=== PATIENT | male | born 1980 | race Two or more races ===

== ENCOUNTER 2018-01-23 05:18 | Emergency (ER) | payer SELFPAY ==
[2018-01-23] MEDS ORDERED: KETOROLAC TROMETHAMINE INJ/PF 30 MG/1 ML SDV IV ONE (08:44)
[2018-01-23] MEDS ORDERED: NORMAL SALINE 1000 ML 1,000 ML IV ONE (08:44)
--- NOTE | 2018-01-23 08:49 | ER Document Report ---
ED GI/ - General Mode of Arrival: Ambulatory Information source: Patient TRAVEL OUTSIDE OF THE U.S. IN LAST 30 DAYS: No <DMITRI MONTOYA - Last Filed: 01/23/18 10:36> <MATTHEW DEAN - Last Filed: 01/23/18 11:58> - General Chief Complaint: Abdominal Pain Stated Complaint: ABDOMINAL PAIN Time Seen by Provider: 01/23/18 08:34 Notes: 37-year-old male who moved here from [place] in November of 2017 presents to the emergency department today with complaints of right lower quadrant abdominal pain that radiates to his right flank. Patient states the pain woke him up out of sleep this morning at 0400. Patient states his only past medical history is high blood pressure which he takes 50 mg of losartan for. Family member at bedside states that he "shares" the medicine for his blood pressure which is hers. (DMITRI MONTOYA) Patient was recently in the [facility], has not gotten his blood pressure medication refilled since he returned to the [facility]. He was in [place] and has come up here to live just over a month ago. He normally takes losartan 50 mg daily. (MATTHEW DEAN) - Related Data Allergies/Adverse Reactions: No Known Allergies Allergy (Unverified 01/23/18 08:39) Past Medical History - General Information source: Patient - Social History Smoking Status: Never Smoker Cigarette use (# per day): No Chew tobacco use (# tins/day): No Frequency of alcohol use: None Drug Abuse: None Lives with: Family Family History: Reviewed & Not Pertinent Patient has suicidal ideation: No Patient has homicidal ideation: No Renal/ Medical History: Denies: Hx Peritoneal Dialysis <DMITRI MONTOYA - Last Filed: 01/23/18 10:36> Review of Systems - Review of Systems Constitutional: No symptoms reported EENT: No symptoms reported Cardiovascular: No symptoms reported Respiratory: No symptoms reported Gastrointestinal: See HPI, Abdominal pain Genitourinary: See HPI, Flank pain Male Genitourinary: No symptoms reported Musculoskeletal: No symptoms reported Skin: No symptoms reported Hematologic/Lymphatic: No symptoms reported Neurological/Psychological: No symptoms reported -: Yes All other systems reviewed and negative <DMITRI MONTOYA - Last Filed: 01/23/18 10:36> Physical Exam <DMITRI MONTOYA - Last Filed: 01/23/18 10:36> <MATTHEW DEAN - Last Filed: 01/23/18 11:58> - Vital signs Vitals: Temp Pulse Resp BP Pulse Ox 97.9 F 79 20 174/113 H 100 01/23/18 05:25 01/23/18 05:25 01/23/18 05:25 01/23/18 05:25 01/23/18 05:25 - Notes Notes: Physical Exam: General: Alert, appears well. HEENT: Normocephalic. Atraumatic. PERRL. Extraocular movements intact. Oropharynx clear. Neck: Supple. Non-tender. Respiratory: No respiratory distress. Clear and equal breath sounds bilaterally. Cardiovascular: Regular rate and rhythm. Abdominal: Right lower quadrant tenderness to palpation. No distension. Normal Bowel Sounds. Back: Non-tender, no CVA tenderness to percussion. No deformity or step off. Extremities: Moves all four extremities. Upper extremities: Normal inspection. Normal ROM. Lower extremities: Normal inspection. No edema. Normal ROM. Neurological: Normal cognition. AAOx4. Normal speech. Psychological: Normal affect. Normal Mood. Skin: Warm. Dry. Normal color. (DMITRI MONTOYA) Course - Laboratory Result Diagrams: 01/23/18 09:30 01/23/18 09:30 <DMITRI MONTOYA - Last Filed: 01/23/18 10:36> - Laboratory Result Diagrams: 01/23/18 09:30 01/23/18 09:30 - Diagnostic Test Radiology reviewed: Image reviewed, Reports reviewed - 3 mm right distal ureteral stone with moderate hydroureter and hydronephrosis <MATTHEW DEAN - Last Filed: 01/23/18 11:58> - Vital Signs Vital signs: Temp Pulse Resp BP Pulse Ox 97.9 F 79 27 H 162/113 H 97 01/23/18 05:25 01/23/18 05:25 01/23/18 11:01 01/23/18 11:01 01/23/18 11:01 - Laboratory Laboratory results interpreted by me: 01/23/18 01/23/18 01/23/18 09:30 09:30 09:45 WBC 13.6 H Seg Neutrophils % 86.6 H Lymphocytes % 8.4 L Absolute Neutrophils 11.8 H Total Protein 8.7 H Albumin 5.1 H Urine Blood MODERATE H Discharge <DMITRI MONTOYA - Last Filed: 01/23/18 10:36> <MATTHEW DEAN - Last Filed: 01/23/18 11:58> - Discharge Clinical Impression: Right distal ureteral calculus, Has run out of medications High blood pressure Qualifiers: Hypertension type: essential hypertension Qualified Code(s): I10 - Essential ( primary) hypertension Condition: Stable Disposition: HOME, SELF-CARE Additional Instructions: Kidney Stone You are passing or have passed a kidney stone. These stones are usually due to increased calcium or uric acid concentrations in your urine. Stones within the kidney itself are not painful. The pain occurs as the stone leaves the kidney to pass down the long tube, called the ureter, leading to the bladder. If the stone is small, it will usually pass by itself. Most patients can pass the stone at home. You will usually receive medications for pain, nausea or vomiting, and sometimes a medication to assist in passing the kidney stone. However, if the pain is very severe or if vomiting prevents you from taking oral pain medications, you may need to return for further treatment. Drink three or four quarts of fluids per day. You will be given pain medication (if needed) and urine strainers. Strain all your urine to see if the stone passes. If your doctor has asked you to bring the stone in for analysis, return with the stone once it has passed. Return if pain or vomiting become severe, if you develop a high fever, if you are unable to pass your urine, or if other unusual symptoms occur. Drink plenty of fluids. Strain urine. Take the blood pressure medication as prescribed. Take the pain medication if needed. Take ibuprofen 600 mg every 8 hours to reduce the discomfort from the kidney stone. Follow-up with a local medical doctor to manage her blood pressure. Follow-up with a local medical doctor or local urologist if you do not pass the kidney stone in the next 7-10 days. RETURN TO THE EMERGENCY ROOM IF ANY NEW OR WORSENING SYMPTOMS. Prescriptions: Losartan Potassium [Cozaar 50 mg Tablet] 50 mg PO DAILY #30 tablet Oxycodone HCl/Acetaminophen [Percocet 5-325 mg Tablet] 1 - 2 tab PO ASDIR PRN # 15 tablet PRN Reason: Scribe Attestation: 01/23/18 08:49 I personally performed the services described in the documentation, reviewed and edited the documentation which was dictated to the scribe in my presence, and it accurately records my words and actions. (DMITRI MONTOYA) Scribe Documentation - Scribe Written by Tamar:: Tamar Greenwood, 01/23/2018 1043 acting as scribe for :: Mckayla <DMITRI MONTOYA - Last Filed: 01/23/18 10:36>
[2018-01-23 09:57] LABS: ABSOLUTE LYMPHOCYTES (AUTO) 1.1 10^3/uL (0.5-4.7); ABSOLUTE MONOCYTES (AUTO) 0.6 10^3/uL (0.1-1.4); ABSOLUTE NEUT (AUTO) 11.8 10^3/uL (1.7-8.2); BASOPHILS % (AUTO) 0.2 % (0-2); EOSINOPHILS % (AUTO) 0.1 % (0-6); HEMATOCRIT 48.5 % (37.9-51.0); HEMOGLOBIN 16.8 g/dL (13.5-17.0); LYMPHOCYTES % (AUTO) 8.4 % (13-45); MEAN CORPUSCULAR HEMOGLOBIN 30.4 pg (27.0-33.4); MEAN CORPUSCULAR HGB CONC 34.6 g/dL (32.0-36.0); MEAN CORPUSCULAR VOLUME 88 fl (80-97); MONOCYTES % (AUTO) 4.7 % (3-13); PLATELET COUNT 196 10^3/uL (150-450); RED BLOOD COUNT 5.51 10^6/uL (4.35-5.55); RED CELL DISTRIBUTION WIDTH 13.3 % (11.5-14.0); SEGMENTED NEUTROPHILS % (AUTO) 86.6 % (42-78); TOTAL CELLS COUNTED % (AUTO) 100 %; WHITE BLOOD COUNT 13.6 10^3/uL (4.0-10.5)
[2018-01-23 10:11] LABS: ALANINE AMINOTRANSFERASE 66 U/L (21-72); ALBUMIN 5.1 g/dL (3.5-5.0); ALKALINE PHOSPHATASE 68 U/L (38-126); ANION GAP 17 (5-19); ASPARTATE AMINO TRANSFERASE 33 U/L (17-59); BILIRUBIN,DIRECT 0.2 mg/dL (0.0-0.4); BILIRUBIN,TOTAL 0.8 mg/dL (0.2-1.3); BLOOD UREA NITROGEN 17 mg/dL (7-20); CALCIUM 9.9 mg/dL (8.4-10.2); CARBON DIOXIDE 25 mmol/L (22-30); CHLORIDE 103 mmol/L (98-107); GLUCOSE 103 mg/dL (75-110); POTASSIUM 4.5 mmol/L (3.6-5.0); SODIUM 144.6 mmol/L (137-145); TOTAL PROTEIN 8.7 g/dL (6.3-8.2)
[2018-01-23 10:12] LABS: APPEARANCE,URINE CLEAR; BILIRUBIN,URINE NEGATIVE (NEGATIVE); COLOR,URINE STRAW; GLUCOSE, URINE NEGATIVE (NEGATIVE); KETONES,URINE NEGATIVE (NEGATIVE); LEUKOCYTE ESTERASE,URINE NEGATIVE (NEGATIVE); NITRITE,URINE NEGATIVE (NEGATIVE); PROTEIN,URINE NEGATIVE (NEGATIVE); URINE SPECIFIC GRAVITY 1.011; UROBILINOGEN,URINE NEGATIVE mg/dL (<2.0)
--- NOTE | 2018-01-23 11:09 | RADIOLOGY REPORT (SQ) ---
EXAM DESCRIPTION: CT LTD RENAL STONE PROTOCOL ON COMPLETED DATE/TIME: 01/23/2018 10:48 am REASON FOR STUDY: Right lower quadrant abdominal pain with hematuria COMPARISON: None. TECHNIQUE: CT scan of the abdomen and pelvis performed without intravenous or oral contrast. Images reviewed with lung, soft tissue, and bone windows. Reconstructed coronal and sagittal MPR images revi ewed. All images stored on PACS. All CT scanners at this facility use dose modulation, iterative reconstruction, and/or weight based d osing when appropriate to reduce radiation dose to as low as reasonably achievable (ALARA). [facility]: Dose Right [facility]: CareDose [facility]: Dose Right [facility]: Teradose 4D [facility]: Smart Swift Endeavor RADIATION DOSE: CT Rad equipment meets quality standard of care and radiation dose reduction techniq ues were employed. CTDIvol: 5.0 mGy. DLP: 287 mGy-cm.mGy. LIMITATIONS: None. FINDINGS: A 3 mm calculus is present at the right ureterovesical junction, along the right ureteral orifice into the bladder. This causes mild to moderate right hydronephrosis and hydroureter, stone i s best shown on coronal image 39 and axial image 84. Elsewhere in the right kidney and ureter, no other calculi are identified. No right renal cysts or m asses. LOWER CHEST: No significant findings. No nodules or infiltrates. NON-CONTRASTED LIVER, SPLEEN, ADRENALS: Evaluation limited by lack of IV contrast. No identified sign ificant masses. PANCREAS: No masses. No peripancreatic inflammatory changes. GALLBLADDER: No identified stones by CT criteria. No inflammatory changes to suggest cholecystitis. RIGHT KIDNEY AND URETER: As above LEFT KIDNEY AND URETER: No suspicious masses. Assessment limited by lack of IV contrast. No signifi cant calcifications. No hydronephrosis or hydroureter. AORTA AND RETROPERITONEUM: No aneurysm. No retroperitoneal masses or adenopathy. BOWEL AND PERITONEAL CAVITY: No obvious masses or inflammatory changes. No free fluid. APPENDIX: Normal. PELVIS, BLADDER, AND ABDOMINAL WALL:No abnormal masses. No free fluid. Bladder normal. BONES: No significant findings. OTHER: No other significant finding. IMPRESSION: 3 mm distal right ureteral stone causing moderate right hydronephrosis and hydroureter. COMMENT: Quality ID # [id number]: Final reports with documentation of one or more dose reduction techniques (e.g., Automated exposure control, adjustment of the mA and/or kV according to patient size, use of iterative reconstruction technique) TECHNICAL DOCUMENTATION: JOB ID: [id number] [employer]- All Rights Reserved Reading location - IP/workstation name: [email or web address]
[2018-01-23 12:14] VITALS: BP 145/101
== END 2018-01-23 12:19 | disposition home or self-care (01) ==
LOC: ER 05:18
DX: N20.1 Calculus of ureter (principal); R10.9 Unspecified abdominal pain; I10 Essential (primary) hypertension
CPT/HCPCS: 99284; 96360; 96361; 36415; 85025; 80053; 81001; 76380; J7030

== ENCOUNTER 2020-04-24 22:39 | Emergency (ER) | payer SELFPAY ==
--- NOTE | 2020-04-25 00:02 | ER Document Report ---
ED Medical Screen (RME) - General Stated Complaint: POSSIBLE UTI/PASSING BLOOD Time Seen by Provider: 04/24/20 23:50 TRAVEL OUTSIDE OF THE [place] IN LAST 30 DAYS: No - HPI Notes: Patient is a 39 y/o male with a hx of HTN and kidney stones who presents with hematuria that began yesterday. He reports mild right flank pain but denies dysuria, abdominal pain, groin pain, nausea, vomiting, diarrhea, and penile discharge. Patient denies blood thinner use. - Related Data Allergies/Adverse Reactions: No Known Allergies Allergy (Unverified 01/23/18 08:39) Past Medical History Renal/ Medical History: Denies: Hx Peritoneal Dialysis Physical Exam - Vital signs Vitals: Temp Pulse Resp BP Pulse Ox 98.1 F 78 16 189/130 H 100 04/24/20 22:55 04/24/20 22:55 04/24/20 22:55 04/24/20 22:55 04/24/20 22:55 - Abdominal Distension: No distension Bowel sounds: Normal Tenderness: Nontender, Other - No CVA tenderness Course - Re-evaluation Re-evalutation: I have greeted and performed a rapid initial assessment of this patient. A comprehensive ED assessment and evaluation of the patient, analysis of test results and completion of medical decision making process will be conducted by an additional ED providers. - Vital Signs Vital signs: Temp Pulse Resp BP Pulse Ox 98.1 F 78 16 189/130 H 100 04/24/20 22:55 04/24/20 22:55 04/24/20 22:55 04/24/20 22:55 04/24/20 22:55
[2020-04-25 00:19] LABS: APPEARANCE,URINE CLEAR; BILIRUBIN,URINE NEGATIVE (NEGATIVE); COLOR,URINE RED; GLUCOSE, URINE NEGATIVE (NEGATIVE); KETONES,URINE NEGATIVE (NEGATIVE); LEUKOCYTE ESTERASE,URINE NEGATIVE (NEGATIVE); NITRITE,URINE NEGATIVE (NEGATIVE); PROTEIN,URINE 100 mg/dL (NEGATIVE); URINE SPECIFIC GRAVITY 1.005; UROBILINOGEN,URINE NEGATIVE mg/dL (<2.0)
[2020-04-25 00:34] LABS: ABSOLUTE EOSINOPHILS # (AUTO) 0.1 10^3/uL (0.0-0.6); ABSOLUTE LYMPHOCYTES (AUTO) 1.6 10^3/uL (0.5-4.7); ABSOLUTE MONOCYTES (AUTO) 0.4 10^3/uL (0.1-1.4); ABSOLUTE NEUT (AUTO) 5.5 10^3/uL (1.7-8.2); BASOPHILS % (AUTO) 0.5 % (0-2); EOSINOPHILS % (AUTO) 0.7 % (0-6); HEMATOCRIT 46.2 % (37.9-51.0); HEMOGLOBIN 16.1 g/dL (13.5-17.0); LYMPHOCYTES % (AUTO) 21.1 % (13-45); MEAN CORPUSCULAR HEMOGLOBIN 30.5 pg (27.0-33.4); MEAN CORPUSCULAR HGB CONC 34.8 g/dL (32.0-36.0); MEAN CORPUSCULAR VOLUME 88 fl (80-97); MONOCYTES % (AUTO) 5.8 % (3-13); PLATELET COUNT 190 10^3/uL (150-450); RED BLOOD COUNT 5.27 10^6/uL (4.35-5.55); RED CELL DISTRIBUTION WIDTH 13.3 % (11.5-14.0); SEGMENTED NEUTROPHILS % (AUTO) 71.9 % (42-78); TOTAL CELLS COUNTED % (AUTO) 100 %; WHITE BLOOD COUNT 7.6 10^3/uL (4.0-10.5)
[2020-04-25 00:54] LABS: ALBUMIN 4.8 g/dL (3.5-5.0); ALKALINE PHOSPHATASE 85 U/L (38-126); ANION GAP 11 (5-19); ASPARTATE AMINO TRANSFERASE 28 U/L (17-59); BILIRUBIN,DIRECT 0.1 mg/dL (0.0-0.4); BILIRUBIN,TOTAL 0.6 mg/dL (0.2-1.3); BLOOD UREA NITROGEN 18 mg/dL (7-20); CALCIUM 9.8 mg/dL (8.4-10.2); CARBON DIOXIDE 27 mmol/L (22-30); CHLORIDE 102 mmol/L (98-107); GLUCOSE 99 mg/dL (75-110); POTASSIUM 4.5 mmol/L (3.6-5.0); TOTAL PROTEIN 8.2 g/dL (6.3-8.2)
--- NOTE | 2020-04-25 02:55 | RADIOLOGY REPORT (SQ) ---
EXAM: CT Abdomen and Pelvis Without Intravenous Contrast EXAM DATE/TIME: 04/25/2020 1:57 AM CLINICAL HISTORY: The patient is 39 years old and is Male; flank pain TECHNIQUE: Axial computed tomography images of the abdomen and pelvis without intravenous contrast. Sagittal and coronal reformatted images were created and reviewed. This CT exam was performed using one or more of the following dose reduction techniques: automated exposure control, adjustment of the mA and/or kV according to patient size, and/or use of iterative reconstruction technique. COMPARISON: CT abdomen pelvis from 01/23/2018 FINDINGS: LUNG BASES: Unremarkable. No mass. No consolidation. ABDOMEN: LIVER: Unremarkable. No obvious liver masses appreciated on this non-contrast exam. GALLBLADDER AND BILE DUCTS: Unremarkable. No calcified stones. No significant biliary ductal dilatation. PANCREAS: Unremarkable. No ductal dilation. SPLEEN: Unremarkable. No splenomegaly. ADRENALS: Unremarkable. No adrenal nodules or masses identified. KIDNEYS AND URETERS: Probable small left renal cyst. No hydronephrosis. No renal or ureteral stones. No significant perinephric stranding. STOMACH AND BOWEL: No evidence of bowel obstruction. No significant bowel wall thickening appreciated. PELVIS: APPENDIX: The appendix is unremarkable. BLADDER: The urinary bladder is nondistended. No stones. REPRODUCTIVE: Unremarkable as visualized. ABDOMEN and PELVIS: INTRAPERITONEAL SPACE: Unremarkable. No free air. No significant fluid collection. BONES/JOINTS: No acute fracture. No dislocation. SOFT TISSUES: No significant abnormalities in the superficial soft tissues. VASCULATURE: Unremarkable. No abdominal aortic aneurysm. LYMPH NODES: No significant lymph node enlargement. IMPRESSION: No acute findings in the abdomen or pelvis.
[2020-04-25] MEDS ORDERED: SULFAMETHOXAZOLE/TRIMETHOPRIM 800-160 MG TABLET PO ONE (03:20)
--- NOTE | 2020-04-25 03:24 | ER Document Report ---
ED General - General Chief Complaint: Urinary Problem Stated Complaint: POSSIBLE UTI/PASSING BLOOD Time Seen by Provider: 04/24/20 23:50 Primary Care Provider: [facility] [Provider Group] - Follow up in 3-5 days [facility] [Provider Group] - Follow up in 3-5 days TRAVEL OUTSIDE OF THE [place] IN LAST 30 DAYS: No - HPI Notes: 39-year-old male to the emergency department with complaints of hematuria that began 2 days ago. He admits to some slight discomfort in his right flank but denies significant pain. He states that he has had a history of kidney stones but his pain was a lot worse than it is at this time. Denies any dysuria. He denies any fevers or chills. He does also state that he noted that he has had elevated blood pressure. He has a history and used to be on medications but is not currently. He is requesting to be treated for high blood pressure. Denies any chest pain, shortness of breath, headache, dizziness, numbness and tingling, or any other complaints. - Related Data Allergies/Adverse Reactions: No Known Allergies Allergy (Unverified 01/23/18 08:39) Past Medical History - General Information source: Patient, Parent - Social History Smoking Status: Former Smoker Frequency of alcohol use: None Drug Abuse: None Family History: Reviewed & Not Pertinent Patient has homicidal ideation: No Renal/ Medical History: Denies: Hx Peritoneal Dialysis Review of Systems - Review of Systems Constitutional: denies: Chills, Fever EENT: No symptoms reported Cardiovascular: denies: Chest pain, Palpitations, Heart racing, Orthopnea, Dyspnea, Syncope, Dizziness, Lightheaded Respiratory: denies: Cough, Short of breath Gastrointestinal: denies: Abdominal pain, Diarrhea, Nausea, Vomiting Genitourinary: Flank pain, Hematuria Musculoskeletal: No symptoms reported Skin: No symptoms reported Hematologic/Lymphatic: No symptoms reported Neurological/Psychological: No symptoms reported. denies: Headaches, Numbness -: Yes All other systems reviewed and negative Physical Exam - Vital signs Vitals: Temp Pulse Resp BP Pulse Ox 98.1 F 78 16 189/130 H 100 04/24/20 22:55 04/24/20 22:55 04/24/20 22:55 04/24/20 22:55 11/08/20 22:55 Interpretation: Hypertensive - General General appearance: Appears well, Alert In distress: None - HEENT Head: Normocephalic, Atraumatic Eyes: Normal Pupils: PERRL Neck: Normal, Supple - Respiratory Respiratory status: No respiratory distress Chest status: Nontender Breath sounds: Normal. No: Rales, Rhonchi, Wheezing Chest palpation: Normal - Cardiovascular Rhythm: Regular Heart sounds: Normal auscultation Murmur: No Notes: No leg edema - Abdominal Inspection: Normal Distension: No distension Bowel sounds: Normal Tenderness: Nontender. No: Tender, McBurney's point, Orozco's sign, Guarding, Rebound Organomegaly: No organomegaly - Back Back: Normal, Nontender. 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 CT is negative for kidney stones. Noted urinalysis with RBCs and white blood cell count. Will send urine for culture and cover for possible urinary tract infection. Patient has had elevated blood pressure here in the emergency department and I will start him on Norvasc. I have given him information for follow-up with [facility] as well as urology. Encouraged him to return if worsening symptoms patient agrees with the plan. - Vital Signs Vital signs: Temp Pulse Resp BP Pulse Ox 98.1 F 70 14 174/115 H 100 04/24/20 22:55 04/25/20 02:20 04/25/20 02:20 04/25/20 03:47 04/25/20 02:20 - Laboratory Result Diagrams: 04/25/20 00:06 04/25/20 00:06 Laboratory results interpreted by me: 04/24/20 23:05 Urine Protein 100 H Urine Blood LARGE H - Diagnostic Test Radiology reviewed: Image reviewed, Reports reviewed Discharge - Discharge Clinical Impression: Flank pain, Elevated blood pressure reading Hematuria Qualifiers: Hematuria type: unspecified type Qualified Code(s): R31.9 - Hematuria, unspecified UTI (urinary tract infection) Qualifiers: Urinary tract infection type: acute cystitis Hematuria presence: with hematuria Qualified Code(s): N30.01 - Acute cystitis with hematuria Condition: Stable Disposition: HOME, SELF-CARE Instructions: High Blood Pressure ([facility]), Urinary Tract Infection ([facility]) Additional Instructions: Complete all antibiotics. Follow-up with primary care outpatient. Push fluids. Return if worsening symptoms. Follow-up with urology for blood in your urine. Prescriptions: Sulfamethoxazole/Trimethoprim [Bactrim Ds Tablet] 1 each PO BID #14 tablet Amlodipine Besylate [Norvasc 5 mg Tablet] 5 mg PO DAILY #30 tablet Referrals: [facility] [Provider Group] - Follow up in 3-5 days [facility] [Provider Group] - Follow up in 3-5 days
[2020-04-25 03:48] VITALS: BP 174/115
== END 2020-04-25 03:49 | disposition home or self-care (01) ==
LOC: ER 22:39
DX: N30.01 Acute cystitis with hematuria (principal); R10.9 Unspecified abdominal pain; R39.198 Other difficulties with micturition; R03.0 Elevated blood-pressure reading, without diagnosis of hypertension; Z87.891 Personal history of nicotine dependence
CPT/HCPCS: 36415; 74176; 80053; 81001; 85025; 87086; 99284